=== PATIENT | female | born 1955 | race Caucasian/White ===

== ENCOUNTER 2017-03-05 11:54 | Emergency (ER) | payer MEDICARE, BC ==
[2017-03-05 12:14] VITALS: BP 154/71
--- NOTE | 2017-03-05 13:12 | EDM.PDOC ---
ED HPI Allergic Reaction - General Chief Complaint: Allergic Reaction Stated Complaint: LIGHTHEADED TROUBLE BREATHING Time Seen by Provider: 03/05/17 12:30 Source: Reports: Patient History Limitations: Reports: No limitations - History of Present Illness INITIAL COMMENTS - FREE TEXT/NARRATIVE: Patient presents with dizziness, trouble breathing for the past three days. Lilian states "I started using chlorthalidone three days ago". Lilian also currently takes clonazepam 1m PO three times a day as needed, she reports regular use three times a day with recent attempt to decrease dose per herself. She reports she has tried use of beta blockers and HCTZ in past for blood pressure and they also made her feel dizzy, light headed. Symptom Onset Date: 03/03/17 Timing/Duration: Reports: Day(s): - Related Data Allergies/ADRs: Allergies Allergy/AdvReac Type Severity Reaction Status Date / Time No Known Allergies Allergy Verified 09/26/15 11:48 Home Meds: Home Meds Aspirin/Calcium Carbonate/Mag [Aspirin Buffered 325 mg Tab] 325 mg PO DAILY 02/02 [History] Lisinopril [Lisinopril] 20 mg PO BID 09/23/15 [History] clonazePAM [Clonazepam] 1 mg PO TID PRN 09/23/15 [History] Chlorthalidone 0.5 tab PO DAILY 03/05/17 [History] Simvastatin [Simvastatin] 1 tab PO DAILY 03/05/17 [History] Past Medical History HEENT History: Reports: None Cardiovascular History: Reports: Stents Other Cardiovascular History: Patient reports stent placed to right leg, history of angio to right arm. Respiratory History: Denies: Sleep apnea Other Respiratory History: SOB after taking beta nery and HCTZ Gastrointestinal History: Reports: None Other Gastrointestinal History: Low weight/BMI since 2007 Genitourinary History: Reports: Other (see below) Other Genitourinary History: renal artery obstruction Other Neuro History: Dizziness Psychiatric History: Reports: Anxiety Endocrine/Metabolic History: Reports: None Hematologic History: Reports: None Immunologic History: Reports: None - Past Surgical History Other Cardiovascular Surgeries/Procedures: Angioplasty x 2 Other Musculoskeletal Surgeries/Procedures:: Back surgery x 2, herniated discs - Past Imaging History Past Imaging History: Reports: Angiography Social & Family History - Tobacco Use Smoking Status *Q: Current Every Day Smoker Years of Tobacco use: 50 Packs/Tins Daily: 0.5 Used Tobacco, but Quit: No Second Hand Smoke Exposure: Yes - Recreational Drug Use Recreational Drug Use: No ED ROS ALLERGIC REACTION - Review of Systems Review Of Systems: See Below Constitutional: Reports: weakness. Denies: fever, chills, malaise, night sweats , diaphoresis, weight loss, weight gain HEENT: Reports: Vertigo. Denies: Ear discharge, Ear pain, Hearing loss, Sinus problem, Throat swelling, Vision change Respiratory: Reports: Shortness of Breath. Denies: Wheezing, Cough, Sputum, Hemoptysis Cardiovascular: Reports: Blood pressure problem, Lightheadedness. Denies: Chest pain, Claudication, Dyspnea on exertion, Edema, Orthopnea, Palpitations, PND, Syncope Endocrine: Denies: fatigue, polyuria GI/Abdominal: Reports: Nausea. Denies: Abdominal pain, Constipation, Decreased appetite : Reports: no symptoms Musculoskeletal: Denies: joint swelling, muscle pain Skin: Reports: no symptoms Neurological: Reports: Dizziness, Weakness. Denies: Confusion, Headache, Numbness, Paresthesia, Seizure, Syncope, Trouble Speaking, Difficulty Walking, Change in Speech, Gait Disturbance Psychiatric: Reports: Anxiety. Denies: Hallucinations, Homicidal ideation, Suicidal ideation Hematologic/Lymphatic: Reports: no symptoms Immunologic: Reports: no symptoms ED EXAM GENERAL NO PERIP PULSE - Physical Exam Exam: See Below General Appearance: alert, no apparent distress, anxious Eye Exam: bilateral eye: PERRL Ears: normal external exam, normal canal, hearing grossly normal, normal TMs Nose: normal inspection, normal mucosa Throat/Mouth: Normal inspection, Normal lips, Normal teeth, Normal gums, Normal oropharynx, Normal voice, No airway compromise Head: atraumatic Neck: normal inspection, supple, non-tender, full range of motion Respiratory/Chest: no respiratory distress, lungs clear, normal breath sounds, no accessory muscle use, chest non-tender Cardiovascular: normal peripheral pulses, regular rate, rhythm, no edema, no gallop, no JVD, no murmur, no rub GI/Abdominal: normal bowel sounds, soft, non tender, no organomegaly, no distention, no abnormal bruit, no mass Back Exam: normal inspection, full range of motion Extremities: normal inspection, normal range of motion, non-tender, no pedal edema, normal capillary refill Neurological: alert, oriented, CN II-XII intact, normal cognition, normal gait, normal reflexes, no motor/sensory deficits Psychiatric: anxious Skin Exam: Warm, Dry, Intact, Normal color, No rash Lymphatic: no adenopathy Course - Vital Signs Text/Narrative:: Lilian is a 62 year old female presenting with dizziness, feeling short of breath during dizzy spells and adverse reaction to use of chorthalidone. Patient vital signs stable while in ER, EKG normal sinus. Patient and her instructed to follow up with Dr. Benjamin on Tuesday or this next week due to adverse reaction. She will stop use of chlorthalidone at this time. She can use lorazepam 1mg, 1/2 to whole tablet as directed, making sure she does not take clonazepam within 4 hours of lorazepam use. She was instructed to return to the ER at any time for SOB, chest pain, chest pressure or other concerns. Last Recorded V/S: Last Vital Signs Temp 36.9 C 03/05/17 12:30 Pulse 79 03/05/17 12:30 Resp 12 03/05/17 12:30 BP 154/71 H 03/05/17 12:30 Pulse Ox 98 03/05/17 12:30 - Orders/Labs/Meds Orders: Active Orders 24 hr Category Date Time Status EKG Documentation Completion [RC] ASDIRECTED Care 03/05/17 13:05 Ordered EKG 12 Lead [EK] Routine Ther 03/05/17 13:05 Ordered Departure - Departure Time of Disposition: 13:39 Disposition: Home, Self-Care 01 Condition: good Clinical Impression: Anxiety Forms: ED Department Discharge Additional Instructions: Follow up with Dr. Benjamin next week as directed. Return to the ER for any worsening of status. - My Orders Last 24 Hours: My Active Orders 03/05/17 13:05 EKG Documentation Completion [RC] ASDIRECTED EKG 12 Lead [EK] Routine - Assessment/Plan Last 24 Hours: My Active Orders 03/05/17 13:05 EKG Documentation Completion [RC] ASDIRECTED EKG 12 Lead [EK] Routine
[2017-03-05] MEDS ORDERED: LORazepam 1 MG Tab PO ONE (13:34)
== END 2017-03-05 14:10 | disposition home or self-care (01) ==
LOC: JP.ED 11:54
DX: F41.9 Anxiety disorder, unspecified (principal); F17.210 Nicotine dependence, cigarettes, uncomplicated; Z98.890 Other specified postprocedural states; Z79.82 Long term (current) use of aspirin; Z79.899 Other long term (current) drug therapy
CPT/HCPCS: 93005; 99284; A9270; 93010; 99283

== ENCOUNTER 2020-01-14 15:39 | Emergency (ER) | payer MEDICARE ==
[2020-01-14 16:11] VITALS: BP 175/98
--- NOTE | 2020-01-14 16:11 | EDM.PDOC ---
ED HPI GENERAL MEDICAL PROBLEM - General Chief Complaint: Cardiovascular Problem Stated Complaint: CHEST PAIN Time Seen by Provider: 01/14/20 16:10 Source of Information: Reports: Patient, Old Records History Limitations: Reports: No Limitations - History of Present Illness INITIAL COMMENTS - FREE TEXT/NARRATIVE: 64 yo female is here after a couple of fleeting bouts of chest pain that came on at rest. Sx's not worse with exertion and not associated with diaphoresis, nausea or SOB. Does smoke cigarettes. Has not checked a BP for quite a while. She called the clinic today and described her sx's and was told to come to the ER. Her sx's are completely gone upon arrival today. Is here with her . No radiation of the pain. Today's episode lasted longer than her others at about an hour duration. Onset: Today (and in the recent past), Sudden Onset Date: 01/14/20 Duration: Hour(s): (1), Resolved Prior to Arrival Location: Reports: Chest Quality: Reports: Stabbing Severity: Moderate Improves with: Reports: Other (time) Worsens with: Reports: Other (unknown) Context: Reports: Other (see HPI) Associated Symptoms: Reports: Chest Pain. 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) (none) - Related Data Allergies Allergy/AdvReac Type Severity Reaction Status Date / Time No Known Allergies Allergy Verified 01/14/20 16:13 Home Meds: Home Meds Aspirin/Calcium Carbonate/Mag [Aspirin Buffered 325 mg Tab] 325 mg PO DAILY 02/02 [History] Lisinopril 20 mg PO BID 09/23/15 [History] clonazePAM [Clonazepam] 1 mg PO TID PRN 09/23/15 [History] Rosuvastatin Calcium 1 tab PO BEDTIME 01/14/20 [History] amLODIPine Besylate [Amlodipine Besylate] 1 tab PO BID 01/14/20 [History] Past Medical History HEENT History: Reports: None Cardiovascular History: Reports: Stents Other Cardiovascular History: Patient reports stent placed to right leg, history of angio to right arm. Other Respiratory History: SOB after taking beta nery and HCTZ Gastrointestinal History: Reports: None Other Gastrointestinal History: Low weight/BMI since 2007 Genitourinary History: Reports: Other (See Below) Other Genitourinary History: renal artery obstruction Other Neuro History: Dizziness Psychiatric History: Reports: Anxiety Endocrine/Metabolic History: Reports: None Hematologic History: Reports: None Immunologic History: Reports: None - Past Surgical History Other Cardiovascular Surgeries/Procedures: Angioplasty x 2 Other Musculoskeletal Surgeries/Procedures:: Back surgery x 2, herniated discs - Past Imaging History Past Imaging History: Reports: Angiography ED ROS GENERAL - Review of Systems Review Of Systems: See Below Constitutional: Reports: No Symptoms HEENT: Reports: No Symptoms Respiratory: Reports: No Symptoms Cardiovascular: Reports: Chest Pain GI/Abdominal: Reports: No Symptoms : Reports: No Symptoms Musculoskeletal: Reports: No Symptoms Skin: Reports: No Symptoms Neurological: Reports: No Symptoms Psychiatric: Reports: Anxiety ED EXAM, GENERAL - Physical Exam Exam: See Below Exam Limited By: No Limitations General Appearance: Alert, WD/WN, No Apparent Distress Eye Exam: Bilateral Eye: Normal Inspection Ears: Normal External Exam, Normal Canal, Hearing Grossly Normal Ear Exam: Bilateral Ear: Auricle Normal, Canal Normal Nose: Normal Inspection, No Blood Throat/Mouth: Normal Inspection, Normal Lips, Normal Oropharynx, Normal Voice, No Airway Compromise Head: Atraumatic, Normocephalic Neck: Normal Inspection Respiratory/Chest: No Respiratory Distress, Lungs Clear, Normal Breath Sounds, No Accessory Muscle Use, Chest Non-Tender Cardiovascular: Regular Rate, Rhythm, No Edema Extremities: Normal Inspection, Normal Range of Motion, Non-Tender, No Pedal Edema Neurological: Alert, Oriented, CN II-XII Intact, Normal Cognition, No Motor/ Sensory Deficits Psychiatric: Normal Affect, Normal Mood Skin Exam: Warm, Dry, Intact, Normal Color, No Rash EKG INTERPRETATION EKG Date: 01/14/20 Time: 15:55 Rhythm: NSR Rate (Beats/Min): 104 Marshall: Normal P-Wave: Present QRS: Normal ST-T: Normal QT: Normal Comparison: Change From Previous EKG (Rate had increased significantly since last EKG.) Course - Vital Signs Last Recorded V/S: Last Vital Signs Temp 36.1 C 01/14/20 16:12 Pulse 94 01/14/20 16:12 Resp 20 01/14/20 16:12 BP 175/98 H 01/14/20 16:12 Pulse Ox 98 01/14/20 16:12 - Orders/Labs/Meds Orders: Active Orders 24 hr Category Date Time Status Cardiac Monitoring [RC] .As Directed Care 01/14/20 15:42 Active EKG Documentation Completion [RC] ASDIRECTED Care 01/14/20 15:42 Active Ang Chest [CT] Stat Exams 01/14/20 17:01 Taken Iopamidol [Isovue-370 (76%)] Med 01/14/20 17:15 Active 100 ml IV . DIRECTED Lactated Ringers [Ringers, Lactated] 1,000 ml Med 01/14/20 17:15 Active IV ASDIRECTED Sodium Chloride 0.9% [Normal Saline] 100 ml Med 01/14/20 17:15 Active IV ASDIRECTED Sodium Chloride 0.9% [Saline Flush] Med 01/14/20 17:07 Active 10 ml FLUSH ASDIRECTED PRN EKG 12 Lead [EK] Routine Ther 01/14/20 15:41 Ordered Medication Orders Lactated Ringer's (Ringers, Lactated) 1,000 mls @ 500 mls/hr IV ASDIRECTED [facility] Last Admin: 01/14/20 17:16 Dose: 500 mls/hr Sodium Chloride (Normal Saline) 100 mls @ 3 mls/sec IV ASDIRECTED [facility] Last Admin: 01/14/20 17:54 Dose: 3 mls/sec Iopamidol (Isovue-370 (76%)) 100 ml IV . DIRECTED [facility] Last Admin: 01/14/20 17:54 Dose: 100 ml Sodium Chloride (Saline Flush) 10 ml FLUSH ASDIRECTED PRN PRN Reason: Keep Vein Open Last Admin: 01/14/20 17:53 Dose: 10 ml Admin: 01/14/20 17:17 Dose: 10 ml Labs: Laboratory Tests 01/14/20 01/14/20 01/14/20 Range/Units 16:16 16:16 16:16 WBC 7.2 (4.5-11.0) K/uL RBC 4.33 (3.30-5.50) M/uL Hgb 13.2 (12.0-15.0) g/dL Hct 40.4 (36.0-48.0) % MCV 93 (80-98) fL MCH 31 (27-31) pg MCHC 33 (32-36) % Plt Count 246 (150-400) K/uL D-Dimer, Quantitative 577 H (0.0-400.0) ng/mL Sodium 137 L (140-148) mmol/L Potassium 3.9 (3.6-5.2) mmol/L Chloride 99 L (100-108) mmol/L Carbon Dioxide 25 (21-32) mmol/L Anion Gap 16.9 H (5.0-14.0) mmol/L BUN 7 (7-18) mg/dL Creatinine 0.8 (0.6-1.0) mg/dL Est Cr Clr Drug Dosing 58.77 mL/min Estimated GFR (MDRD) > 60 (>60) Glucose 96 (74-106) mg/dL Calcium 8.7 (8.5-10.1) mg/dL Total Bilirubin 0.2 (0.2-1.0) mg/dL AST 24 (15-37) U/L ALT 26 (12-78) U/L Alkaline Phosphatase 68 (46-116) U/L Troponin I < 0.017 (0.000-0.056) ng/mL Total Protein 7.7 (6.4-8.2) g/dL Albumin 4.1 (3.4-5.0) g/dL Globulin 3.6 H (2.3-3.5) g/dL Albumin/Globulin Ratio 1.1 L (1.2-2.2) Meds: Medications Generic Name Dose Route Start Last Admin Trade Name Freq PRN Reason Stop Dose Admin Lactated Ringer's 1,000 mls @ 500 mls/hr 01/14/20 17:15 01/14/20 17:16 Ringers, Lactated IV 500 mls/hr ASDIRECTED KIT Administration Sodium Chloride 100 mls @ 3 mls/sec 01/14/20 17:15 01/14/20 17:54 Normal Saline IV 3 mls/sec ASDIRECTED KIT Administration Iopamidol 100 ml 01/14/20 17:15 01/14/20 17:54 Isovue-370 (76%) IV 100 ml . DIRECTED KIT Administration Sodium Chloride 10 ml 01/14/20 17:07 01/14/20 17:53 Saline Flush FLUSH 10 ml ASDIRECTED PRN Administration Keep Vein Open - Radiology Interpretation Free Text/Narrative:: CTA chest-neg CT Results Date: 01/14/20 Departure - Departure Time of Disposition: 18:05 Disposition: Home, Self-Care 01 Condition: Fair Clinical Impression: Atypical chest pain Instructions: Nonspecific Chest Pain Referrals: Suzie Irvin PA-C [Primary Care Provider] - Forms: ED Department Discharge Additional Instructions: Continue your current medications. Recheck with your doctor. Return here if worse. Sepsis Event Note - Focused Exam Vital Signs: Vital Signs Temp Pulse Resp BP Pulse Ox 01/14/20 16:12 36.1 C 94 20 175/98 H 98 01/14/20 16:10 36.1 C 100 16 175/98 H 96 Date Exam was Performed: 01/14/20 Time Exam was Performed: 17:59 - My Orders Last 24 Hours: My Active Orders 01/14/20 15:41 EKG 12 Lead [EK] Routine 01/14/20 15:42 Cardiac Monitoring [RC] .As Directed EKG Documentation Completion [RC] ASDIRECTED 01/14/20 17:01 Ang Chest [CT] Stat 01/14/20 17:07 Sodium Chloride 0.9% [Saline Flush] 10 ml FLUSH ASDIRECTED PRN 01/14/20 17:15 Iopamidol [Isovue-370 (76%)] 100 ml IV . DIRECTED Lactated Ringers [Ringers, Lactated] 1,000 ml IV ASDIRECTED Sodium Chloride 0.9% [Normal Saline] 100 ml IV ASDIRECTED - Assessment/Plan Last 24 Hours: My Active Orders 01/14/20 15:41 EKG 12 Lead [EK] Routine 01/14/20 15:42 Cardiac Monitoring [RC] .As Directed EKG Documentation Completion [RC] ASDIRECTED 01/14/20 17:01 Ang Chest [CT] Stat 01/14/20 17:07 Sodium Chloride 0.9% [Saline Flush] 10 ml FLUSH ASDIRECTED PRN 01/14/20 17:15 Iopamidol [Isovue-370 (76%)] 100 ml IV . DIRECTED Lactated Ringers [Ringers, Lactated] 1,000 ml IV ASDIRECTED Sodium Chloride 0.9% [Normal Saline] 100 ml IV ASDIRECTED
[2020-01-14 16:13] VITALS: PULSE 94
[2020-01-14] MEDS ORDERED: Lactated Ringers 1,000 ML IV SCH (17:15)
[2020-01-14] MEDS ORDERED: Sodium Chloride 0.9% 100 ML IV SCH (17:15)
[2020-01-14] MEDS ORDERED: Iopamidol 755 Mg/ML 100 ML Bottle IV SCH (17:15)
[2020-01-14] MEDS: Sodium Chloride 0.9% 10 ML Syringe FLUSH PRN ×2 (17:17→17:53)
--- NOTE | 2020-01-14 18:25 | CRLCT ---
INDICATION: Chest pain, elevated D-dimer TECHNIQUE: CT chest pulmonary PE protocol acquired with 100 cc Isovue 370 IV contrast. COMPARISON: None FINDINGS: Cardiovascular structures: Normal vascular enhancement of the pulmonary arteries, no sign of pulmonary embolism. Heart size is normal. Coronary artery calcifications. No sign of aneurysm in the thoracic aorta. Mediastinum and radha: No mass or adenopathy. Lungs: Clear. Pleura and pericardium: No effusions. Chest wall and axilla: No mass or adenopathy. Upper abdomen: Significant aortic calcifications in the abdominal aorta. Bones: No significant findings. IMPRESSION: No pulmonary embolism, pneumonia, or acute intrathoracic abnormality. Coronary artery disease. Significant abdominal aortic wall calcifications. Consider nonemergent CT abdomen and pelvis for complete evaluation of the abdominal aorta. Please note that all CT scans at this facility use dose modulation, iterative reconstruction, and/or weight-based dosing when appropriate to reduce radiation dose to as low as reasonably achievable. Dictated by Angela Weaver MD @ Jan 14 2020 6:24PM Signed by Dr. Angela Weaver @ Jan 14 2020 6:24PM
== END 2020-01-14 18:14 | disposition home or self-care (01) ==
LOC: JP.ED 15:39
DX: R07.89 Other chest pain (principal); Z79.82 Long term (current) use of aspirin; Z79.899 Other long term (current) drug therapy
CPT/HCPCS: 36415; 71275; 80053; 84484; 85027; 85379; 93005; 96360; 99284; 99285; J7050; J7120; Q9967; 93010

== ENCOUNTER 2020-05-17 11:53 | Emergency (ER) | payer MEDICARE ==
[2020-05-17] MEDS ORDERED: Sodium Chloride 0.9% 10 ML Syringe FLUSH PRN (12:14)
[2020-05-17] MEDS ORDERED: Sodium Chloride 0.9% 1,000 ML IV ONE (12:16)
--- NOTE | 2020-05-17 12:22 | EDM.PDOC ---
ED HPI GENERAL MEDICAL PROBLEM - General Chief Complaint: General Stated Complaint: FEVER,CHEST PAIN Time Seen by Provider: 05/17/20 12:17 Source of Information: Reports: Patient History Limitations: Reports: No Limitations - History of Present Illness INITIAL COMMENTS - FREE TEXT/NARRATIVE: Lilian is a 65 year old female, presents to the ED today a two day hx of various symptoms including a fever per patient, temperature of 99.1 today "I normally run 97". Patient endorses a mild headache on top of her head, relieved with Tylenol, nausea, no vomiting, no diarrhea, no dysuria. "feeling funny" in her head but denies dizziness, described more as a "foggy" feeling. Patient also reports body aches, specifically bilateral leg pain, but states this is not new and her doctor told her it was from her back. Patient endorses sob and chest tightness since last night. She denies any unilateral weakness but does feel generally weak. Patient has occasional non productive cough but is a "very light smoker" and this is also now new per patient. Patient has had a cardiac stent placed but denies being on blood thinners. Patient denies hx of DVT/PE. Patient denies being around anyone with known COVID. Activity seems to make her symptoms worse. Onset: Gradual - Related Data Allergies Allergy/AdvReac Type Severity Reaction Status Date / Time No Known Allergies Allergy Verified 05/17/20 12:12 Home Meds: Home Meds Aspirin/Calcium Carbonate/Mag [Aspirin Buffered 325 mg Tab] 325 mg PO DAILY 09/23/15 [History] Lisinopril 20 mg PO BID 09/23/15 [History] clonazePAM [Clonazepam] 1 mg PO TID PRN 09/23/15 [History] Rosuvastatin Calcium 1 tab PO BEDTIME 01/14/20 [History] amLODIPine Besylate [Amlodipine Besylate] 5 mg PO BID 01/14/20 [History] Diclofenac Sodium 50 mg PO ASDIRECTED 05/17/20 [History] Past Medical History HEENT History: Reports: None Cardiovascular History: Reports: Stents Other Cardiovascular History: Patient reports stent placed to right leg, history of angio to right arm. Other Respiratory History: SOB after taking beta nery and HCTZ Gastrointestinal History: Reports: None Other Gastrointestinal History: Low weight/BMI since 2007 Genitourinary History: Reports: Other (See Below) Other Genitourinary History: renal artery obstruction Musculoskeletal History: Reports: None Other Neuro History: Dizziness Psychiatric History: Reports: Anxiety Endocrine/Metabolic History: Reports: None Hematologic History: Reports: None Immunologic History: Reports: None - Past Surgical History Other Cardiovascular Surgeries/Procedures: Angioplasty x 2 Other Musculoskeletal Surgeries/Procedures:: Back surgery x 2, herniated discs - Past Imaging History Past Imaging History: Reports: Angiography Social & Family History - Family History Family Medical History: Noncontributory - Caffeine Use Caffeine Use: Reports: Coffee ED ROS GENERAL - Review of Systems Review Of Systems: Comprehensive ROS is negative, except as noted in HPI. ED EXAM, GENERAL - Physical Exam Exam: See Below Exam Limited By: No Limitations General Appearance: Alert, Anxious Eye Exam: Left Eye: Nystagmus (left lateral horizontal), Bilateral Eye: EOMI, PERRL Ears: Normal External Exam Nose: Normal Inspection Throat/Mouth: Normal Inspection, Normal Oropharynx Head: Atraumatic, Normocephalic Neck: Normal Inspection, Supple, Non-Tender, Full Range of Motion Respiratory/Chest: No Respiratory Distress, Lungs Clear, Normal Breath Sounds Cardiovascular: Tachycardia, Other (Hypertensive) GI/Abdominal: Normal Bowel Sounds, Soft, Non-Tender Back Exam: Normal Inspection Extremities: Normal Inspection, Normal Range of Motion Neurological: Alert, Oriented, CN II-XII Intact, No Motor/Sensory Deficits Psychiatric: Normal Affect Skin Exam: Warm, Dry Lymphatic: No Adenopathy EKG INTERPRETATION Rhythm: NSR Surprise: Normal ST-T: Other (< 0.5 mm in V3-V6, reviewed with Officer) Course - Vital Signs Last Recorded V/S: Last Vital Signs Temp 35.4 C L 05/17/20 12:05 Pulse 98 05/17/20 13:25 Resp 12 05/17/20 13:25 BP 151/81 H 05/17/20 13:25 Pulse Ox 98 05/17/20 13:25 April is a 65 year old female, presents to the ED today with multiple complaints as noted in HPI. Patient arrives here tachycardic, hypertensive, she appears anxious but denies this. Patient's symptoms could be related to cardiac etiology, viral in nature, with her headache and nystagmus, there could be a neurological component although I feel this is less likely. EKG obtained and shows < 0.[address] elevation in leads V3-V6, this was not noted in prior EKG, I discussed this with Officer here in the ED, pending troponin which returns undetectable and given onset of symptoms I do not feel that we need to repeat this. Repeat EKG unchanged. Patient denies any chest tightness here after IV Ativan. We do not think that the EKG is concerning at this time given reassuring cardiac enzymes and does not meet STEMI criteria given very minimal elevation. Patient does have an elevated D Dimer, CT chest obtained and is negative for PE, does show findings consistent with Emphysema/COPD which I discussed with patient. Head CT is unremarkable. CBC returns with normal white count and stable HGB. Patient has mildly low sodium of 132, renal function stable. Patient feeling better here after IV fluids. UA negative for infection. Patient was swabbed for COVID which is pending. I feel patient is stable to be discharged home. Ongoing supportive care discussed as well as importance of hydration. Smoking cessation encouraged. Patient to stay quarantined until COVID swab returns. Reasons to return to the ED discussed. Patient is agreeable to plan of care and discharged in stable condition. - Orders/Labs/Meds Orders: Active Orders 24 hr Category Date Time Status EKG Documentation Completion [RC] ASDIRECTED Care 05/17/20 12:16 Active EKG Documentation Completion [RC] ASDIRECTED Care 05/17/20 13:08 Active Peripheral IV Care [RC] . DIRECTED Care 05/17/20 12:14 Active CORONAVIRUS COVID-19, KACY Stat Lab 05/17/20 12:16 Ordered CULTURE BLOOD [BC] Urgent Lab 05/17/20 12:20 Received CULTURE BLOOD [BC] Urgent Lab 05/17/20 12:35 Received Sodium Chloride 0.9% [Saline Flush] Med 05/17/20 12:14 Active 10 ml FLUSH ASDIRECTED PRN Blood Culture x2 Reflex Set [OM.PC] Urgent Oth 05/17/20 12:14 Ordered Peripheral IV Insertion Adult [OM.PC] Routine Oth 05/17/20 12:14 Ordered EKG 12 Lead [EK] Stat Ther 05/17/20 12:15 Ordered EKG 12 Lead [EK] Stat Ther 05/17/20 13:08 Ordered Medication Orders Sodium Chloride (Saline Flush) 10 ml FLUSH ASDIRECTED PRN PRN Reason: Keep Vein Open Last Admin: 05/17/20 12:29 Dose: 10 ml Documented by: SULEMAN Labs: Laboratory Tests 05/17/20 05/17/20 05/17/20 Range/Units 12:20 12:20 12:20 WBC 6.5 (4.5-11.0) K/uL RBC 4.25 (3.30-5.50) M/uL Hgb 13.4 (12.0-15.0) g/dL Hct 39.4 (36.0-48.0) % MCV 93 (80-98) fL MCH 32 H (27-31) pg MCHC 34 (32-36) % Plt Count 250 (150-400) K/uL Neut % (Auto) 71 H (36-66) % Lymph % (Auto) 21 L (24-44) % [place] % (Auto) 7 H (2-6) % Eos % (Auto) 1 L (2-4) % Baso % (Auto) 1 (0-1) % D-Dimer, Quantitative (0.0-400.0) ng/mL Sodium 132 L (140-148) mmol/L Potassium 4.1 (3.6-5.2) mmol/L Chloride 95 L (100-108) mmol/L Carbon Dioxide 27 (21-32) mmol/L Anion Gap 14.1 H (5.0-14.0) mmol/L BUN 7 (7-18) mg/dL Creatinine 0.8 (0.6-1.0) mg/dL Est Cr Clr Drug Dosing 57.99 mL/min Estimated GFR (MDRD) > 60 (>60) Glucose 107 H (74-106) mg/dL Lactic Acid 1.0 (0.4-2.0) mmol/L Calcium 8.8 (8.5-10.1) mg/dL Total Bilirubin 0.3 (0.2-1.0) mg/dL AST 26 (15-37) U/L ALT 29 (12-78) U/L Alkaline Phosphatase 64 (46-116) U/L Troponin I (0.000-0.056) ng/mL C-Reactive Protein (0.0-0.3) mg/dL Total Protein 7.8 (6.4-8.2) g/dL Albumin 4.2 (3.4-5.0) g/dL Globulin 3.6 H (2.3-3.5) g/dL Albumin/Globulin Ratio 1.2 (1.2-2.2) Urine Color (YELLOW) Urine Appearance (CLEAR) Urine pH (5.0-8.0) Ur Specific [place] (1.008-1.030) Urine Protein (NEGATIVE) mg/dL Urine Glucose (UA) (NEGATIVE) mg/dL Urine Ketones (NEGATIVE) mg/dL Urine Occult Blood (NEGATIVE) Urine Nitrite (NEGATIVE) Urine Bilirubin (NEGATIVE) Urine Urobilinogen (0.2-1.0) EU/dL Ur Leukocyte Esterase (NEGATIVE) Urine RBC (0-5) Urine WBC (0-5) Ur Epithelial Cells Amorphous Sediment Urine Bacteria Urine Mucus 05/17/20 05/17/20 05/17/20 Range/Units 12:35 12:35 12:39 WBC (4.5-11.0) K/uL RBC (3.30-5.50) M/uL Hgb (12.0-15.0) g/dL Hct (36.0-48.0) % MCV (80-98) fL MCH (27-31) pg MCHC (32-36) % Plt Count (150-400) K/uL Neut % (Auto) (36-66) % Lymph % (Auto) (24-44) % [place] % (Auto) (2-6) % Eos % (Auto) (2-4) % Baso % (Auto) (0-1) % D-Dimer, Quantitative 654 H (0.0-400.0) ng/mL Sodium (140-148) mmol/L Potassium (3.6-5.2) mmol/L Chloride (100-108) mmol/L Carbon Dioxide (21-32) mmol/L Anion Gap (5.0-14.0) mmol/L BUN (7-18) mg/dL Creatinine (0.6-1.0) mg/dL Est Cr Clr Drug Dosing mL/min Estimated GFR (MDRD) (>60) Glucose (74-106) mg/dL Lactic Acid (0.4-2.0) mmol/L Calcium (8.5-10.1) mg/dL Total Bilirubin (0.2-1.0) mg/dL AST (15-37) U/L ALT (12-78) U/L Alkaline Phosphatase (46-116) U/L Troponin I < 0.017 (0.000-0.056) ng/mL C-Reactive Protein 0.15 (0.0-0.3) mg/dL Total Protein (6.4-8.2) g/dL Albumin (3.4-5.0) g/dL Globulin (2.3-3.5) g/dL Albumin/Globulin Ratio (1.2-2.2) Urine Color Yellow (YELLOW) Urine Appearance Clear (CLEAR) Urine pH 7.0 (5.0-8.0) Ur Specific [place] 1.015 (1.008-1.030) Urine Protein Negative (NEGATIVE) mg/dL Urine Glucose (UA) Negative (NEGATIVE) mg/dL Urine Ketones Negative (NEGATIVE) mg/dL Urine Occult Blood Trace-intact H (NEGATIVE) Urine Nitrite Negative (NEGATIVE) Urine Bilirubin Negative (NEGATIVE) Urine Urobilinogen 0.2 (0.2-1.0) EU/dL Ur Leukocyte Esterase Trace H (NEGATIVE) Urine RBC 0-5 (0-5) Urine WBC 0-5 (0-5) Ur Epithelial Cells Not seen Amorphous Sediment Not seen Urine Bacteria Many Urine Mucus Not seen Meds: Medications Generic Name Dose Route Start Last Admin Trade Name Freq PRN Reason Stop Dose Admin Sodium Chloride 10 ml 05/17/20 12:14 05/17/20 12:29 Saline Flush FLUSH 10 ml ASDIRECTED PRN Administration Keep Vein Open Discontinued Medications Generic Name Dose Route Start Last Admin Trade Name Freq PRN Reason Stop Dose Admin Sodium Chloride 1,000 mls @ 999 mls/hr 05/17/20 12:16 05/17/20 12:29 Normal Saline IV 05/17/20 13:16 999 mls/hr .BOLUS ONE Administration Sodium Chloride 100 mls @ 3 mls/sec 05/17/20 13:15 05/17/20 14:08 Normal Saline IV 05/17/20 14:00 3 mls/sec ASDIRECTED KIT Administration Iopamidol 100 ml 05/17/20 13:15 05/17/20 14:08 Isovue-370 (76%) IV 05/17/20 14:00 100 ml . DIRECTED KIT Administration Lorazepam 1 mg 05/17/20 13:29 05/17/20 13:36 Ativan IVPUSH 05/17/20 13:30 1 mg ONETIME ONE Administration Sodium Chloride 10 ml 05/17/20 13:12 05/17/20 14:09 Saline Flush FLUSH 05/17/20 13:13 10 ml ONETIME ONE Administration Departure - Departure Time of Disposition: 15:30 Disposition: Home, Self-Care 01 Condition: Fair Clinical Impression: Viral syndrome, Suspected 2019 novel coronavirus infection - Discharge Information Instructions: Viral Illness, Adult Referrals: Suzie Irvin PA-C [Primary Care Provider] - Forms: ED Department Discharge Additional Instructions: Lilian, Please take care of yourself. Stay well hydrated. Stay quarantined until your COVID test results have returned. Return here with any worsening symptoms or new concerns. Sepsis Event Note (ED) - Evaluation Sepsis Screening Result: No Definite Risk - Focused Exam Vital Signs: Vital Signs Temp Pulse Resp BP Pulse Ox 05/17/20 13:25 98 12 151/81 H 98 05/17/20 12:39 98 20 163/73 H 99 05/17/20 12:05 35.4 C L 124 H 20 192/89 H 96 - My Orders Last 24 Hours: My Active Orders 05/17/20 12:14 Peripheral IV Care [RC] . DIRECTED Sodium Chloride 0.9% [Saline Flush] 10 ml FLUSH ASDIRECTED PRN Blood Culture x2 Reflex Set [OM.PC] Urgent Peripheral IV Insertion Adult [OM.PC] Routine 05/17/20 12:15 EKG 12 Lead [EK] Stat 05/17/20 12:16 EKG Documentation Completion [RC] ASDIRECTED CORONAVIRUS COVID-19, KACY Stat 05/17/20 12:20 CULTURE BLOOD [BC] Urgent 05/17/20 12:35 CULTURE BLOOD [BC] Urgent 05/17/20 13:08 EKG Documentation Completion [RC] ASDIRECTED EKG 12 Lead [EK] Stat - Assessment/Plan Last 24 Hours: My Active Orders 05/17/20 12:14 Peripheral IV Care [RC] . DIRECTED Sodium Chloride 0.9% [Saline Flush] 10 ml FLUSH ASDIRECTED PRN Blood Culture x2 Reflex Set [OM.PC] Urgent Peripheral IV Insertion Adult [OM.PC] Routine 05/17/20 12:15 EKG 12 Lead [EK] Stat 05/17/20 12:16 EKG Documentation Completion [RC] ASDIRECTED CORONAVIRUS COVID-19, KACY Stat 05/17/20 12:20 CULTURE BLOOD [BC] Urgent 05/17/20 12:35 CULTURE BLOOD [BC] Urgent 05/17/20 13:08 EKG Documentation Completion [RC] ASDIRECTED EKG 12 Lead [EK] Stat
[2020-05-17] MEDS ORDERED: Sodium Chloride 0.9% 10 ML Syringe FLUSH ONE (13:12)
[2020-05-17] MEDS ORDERED: Iopamidol 755 Mg/ML 100 ML Bottle IV SCH (13:15)
[2020-05-17] MEDS ORDERED: Sodium Chloride 0.9% 100 ML IV SCH (13:15)
[2020-05-17] MEDS ORDERED: LORazepam 2 MG/ML SDV IVPUSH ONE (13:29)
--- NOTE | 2020-05-17 14:40 | CRLCT ---
INDICATION: Headache. Hypertension. TECHNIQUE: CT head without contrast. COMPARISON: None. FINDINGS: CSF spaces: Prominence of the ventricles and sulci likely due to age-related volume loss. Brain parenchyma: The arora-white differentiation is normal. No sign of mass, hemorrhage, or midline shift. Skull base and calvarium: The visualized paranasal sinuses and mastoid air cells demonstrate no acute or significant findings. The visualized orbits are grossly unremarkable. No skull fractures. IMPRESSION: No acute intracranial abnormality. Please note that all CT scans at this facility use dose modulation, iterative reconstruction, and/or weight-based dosing when appropriate to reduce radiation dose to as low as reasonably achievable. Dictated by Branden Sawyer MD @ May 17 2020 2:35PM Signed by Dr. Branden Sawyer @ May 17 2020 2:38PM
--- NOTE | 2020-05-17 14:42 | CRLCT ---
INDICATION: + DIMER SOB COMPARISON: 01/14/2020 TECHNIQUE: CT volumetric acquisition was performed of the thorax during intravenous infusion of 100 cc Isovue 370 nonionic intravenous contrast. Please note that all CT scans at this facility use dose modulation, iterative reconstruction, and/or weight-based dosing when appropriate to reduce radiation dose to as low as reasonably achievable. FINDINGS: The CT images are of acceptable quality and demonstrate normal uniform vascular enhancement within the pulmonary arteries. There are no suspicious filling defects which would indicate pulmonary thromboemboli. There is no evidence of pleural or pericardial fluid. Extensive vascular calcifications are again noted. No aneurysm. There is no evidence of lymphadenopathy within the central mediastinum or within either axilla. On lung window settings, there is no evidence of pneumothorax. COPD/emphysema. No infiltrate or edema. No suspicious nodule. Upper abdomen normal. Mild pectus deformity. Degenerative changes. No fracture. IMPRESSION: No evidence of pulmonary thromboembolism. COPD/emphysema. Please note that all CT scans at this facility use dose modulation, iterative reconstruction, and/or weight-based dosing when appropriate to reduce radiation dose to as low as reasonably achievable. Dictated by Branden Villagomez MD @ May 17 2020 2:34PM Signed by Dr. Branden Villagomez @ May 17 2020 2:39PM
[2020-05-17 15:06] VITALS: BP 128/79; PULSE 95
== END 2020-05-17 15:30 | disposition home or self-care (01) ==
LOC: JP.ED 11:53
DX: B34.9 Viral infection, unspecified (principal); Z79.82 Long term (current) use of aspirin; Z79.899 Other long term (current) drug therapy; Z20.828 Contact with and (suspected) exposure to other viral communicable diseases
CPT/HCPCS: 36415; 70450; 71275; 80053; 81001; 83605; 84484; 85025; 85379; 86140; 87040; 93005; 93010; 96374; 99283; 99284; J2060; J7030; J7050; Q9967; U0002

== ENCOUNTER 2020-12-30 06:28 | Day surgery (SDC) | payer MEDICARE ==
[2020-12-30] MEDS ORDERED: Sodium Chloride 0.9% 1,000 ML IV SCH (07:30)
[2020-12-30] MEDS ORDERED: Midazolam 1 MG/ML 2 ML SDV ONE (07:38)
[2020-12-30] MEDS ORDERED: fentaNYL 100 MCG/2 ML SDV ONE (07:38)
[2020-12-30] MEDS ORDERED: Propofol 200 MG/20 ML SDV ONE (07:38)
[2020-12-30 09:44] VITALS: PULSE 84
[2020-12-30 10:10] VITALS: BP 120/71
--- NOTE | 2020-12-30 10:48 | PROC ---
DATE OF PROCEDURE: SURGEON: Nhan Freeman MD Lilian is a 65-year-old female who has had a Cologuard that came out positive, comes in for a colonoscopy screening for cancer. The risks and benefits were explained to the patient and was taken to the OR. Anesthesia was given by nurse residential team leader. During the procedure, we used 2 mcg of fentanyl, 2 mg of Versed, and 150 mg of propofol. The Olympus 190L was used. The rectum was examined and revealed no abnormality. The tube was placed into the rectum and passed under direct vision. We did get to the cecum. Upon slow retraction of the tube, noted no known lesions or ulceration. No abnormalities throughout the entire colon. The tube was removed. The patient tolerated the procedure well. PREOPERATIVE DIAGNOSIS: Positive Cologuard. POSTOPERATIVE DIAGNOSIS: Normal colon from cecum to rectum. Routine screening should be done for this lady as there is no evidence of any cancer at the present time. Nhan Freeman MD /[id number]
== END 2020-12-30 10:12 | disposition home or self-care (01) ==
LOC: JP.SDS 06:28
PROVIDERS: ATTEND Internal Medicine
DX: R19.5 Other fecal abnormalities (principal); I10 Essential (primary) hypertension; Z88.0 Allergy status to penicillin
CPT/HCPCS: J2250; J2704; J3010; J7030

== ENCOUNTER 2021-01-28 13:50 | Emergency (ER) | payer MEDICARE ==
[2021-01-28 14:49] VITALS: BP 149/84; PULSE 90
--- NOTE | 2021-01-28 15:06 | EDM.PDOC ---
ED HPI GENERAL MEDICAL PROBLEM - General Chief Complaint: General Stated Complaint: CHEST PAIN, WEAKINESS IN LEGS Time Seen by Provider: 01/28/21 15:02 Source of Information: Reports: Patient, Family History Limitations: Reports: No Limitations - History of Present Illness INITIAL COMMENTS - FREE TEXT/NARRATIVE: PT HAS HAD SOME DISCOMFORT IN HER CHEST FOR THE PAST MONTH. hER FRIEND FEELS LIKE THIS IS QUITE SEVERE AT TIMES. sHE DOES SMOKE BUT HAS CUT BACK TO 2 CIGARETTES PER DAY. sHE DOES NOT GET REAL SOB WHEN SHE HAS THE DISCOMFORT. Onset: Gradual Duration: Day(s): Location: Reports: Chest Associated Symptoms: Reports: Chest Pain, Cough - Related Data Allergies Allergy/AdvReac Type Severity Reaction Status Date / Time Penicillins Allergy Cannot Verified 01/28/21 14:36 Remember Home Meds: Home Meds Aspirin/Calcium Carbonate/Mag [Aspirin Buffered 325 mg Tab] 325 mg PO DAILY 09/23/15 [History] Lisinopril 20 mg PO BID 09/23/15 [History] clonazePAM [Clonazepam] 1 mg PO TID PRN 09/23/15 [History] Rosuvastatin Calcium 5 mg PO BEDTIME 01/14/20 [History] amLODIPine Besylate [Amlodipine Besylate] 5 mg PO BID 12/29/20 [History] Ascorbate Calcium [Vitamin C] 500 mg PO DAILY 12/30/20 [History] Past Medical History HEENT History: Reports: None Cardiovascular History: Reports: Angina, High Cholesterol, Hypertension, [place], Stents Other Cardiovascular History: Patient reports stent placed to right leg, history of angio to right arm. Stent in "ilicac artery" Respiratory History: Reports: COPD Other Respiratory History: SOB after taking beta nery and HCTZ, smoker Gastrointestinal History: Reports: None Other Gastrointestinal History: Low weight/BMI since 2007, positive cologuard Genitourinary History: Reports: Other (See Below) Other Genitourinary History: renal artery obstruction [place] History: Reports: Musculoskeletal History: Reports: Arthritis, Other (See Below) Other Musculoskeletal History: "spinal degeneration" Neurological History: Reports: Seizure Other Neuro History: Dizziness Psychiatric History: Reports: Anxiety Endocrine/Metabolic History: Reports: None Hematologic History: Reports: None Immunologic History: Reports: None - Infectious Disease History Infectious Disease History: Reports: Influenza, Measles - Past Surgical History Head Surgeries/Procedures: Reports: None HEENT Surgical History: Reports: Cataract Surgery Other Cardiovascular Surgeries/Procedures: Angioplasty x 2 Respiratory Surgical History: Reports: None GI Surgical History: Reports: Colonoscopy Female Surgical History: Reports: Tubal Ligation Neurological Surgical History: Reports: Lumbar Spine Other Musculoskeletal Surgeries/Procedures:: Back surgery x 2, herniated discs - Past Imaging History Past Imaging History: Reports: Angiography Social & Family History - Family History Family Medical History: No Pertinent Family History - Tobacco Use Tobacco Use Status *Q: Current Every Day Tobacco User Years of Tobacco use: 40 Packs/Tins Daily: 0.3 - Caffeine Use Caffeine Use: Reports: Coffee - Recreational Drug Use Recreational Drug Use: No ED ROS GENERAL - Review of Systems Review Of Systems: See Below Constitutional: Reports: No Symptoms HEENT: Reports: No Symptoms Respiratory: Reports: Cough Cardiovascular: Reports: Chest Pain Endocrine: Reports: No Symptoms GI/Abdominal: Reports: No Symptoms : Reports: No Symptoms Musculoskeletal: Reports: Other (PAIN IN THE UPPER CHEST. ) ED EXAM, GENERAL - Physical Exam Exam: See Below Free Text/Narrative:: pt arrived with a history of atypical chest pain, some coughing. The chest pain has been going on for several weeks. This does not get worse when she exercises. Exam Limited By: No Limitations General Appearance: Alert, Anxious, Mild Distress Ears: Normal TMs Nose: Normal Inspection Throat/Mouth: Normal Inspection Head: Atraumatic Neck: Normal Inspection Respiratory/Chest: No Respiratory Distress, Other (pt has a known history of copd. She is not struggling to breath at this time. ) Cardiovascular: Regular Rate, Rhythm GI/Abdominal: Soft, Non-Tender (Female) Exam: Deferred Rectal (Female) Exam: Deferred Back Exam: Normal Inspection Extremities: Normal Inspection Neurological: Alert, Oriented, Normal Cognition Psychiatric: Anxious Course - Vital Signs Last Recorded V/S: Last Vital Signs Temp 36.8 C 01/28/21 14:35 Pulse 90 01/28/21 14:48 Resp 16 01/28/21 14:48 BP 149/84 H 01/28/21 14:48 Pulse Ox 96 01/28/21 14:48 - Orders/Labs/Meds Labs: Laboratory Tests 01/28/21 01/28/21 01/28/21 Range/Units 15:00 15:00 15:44 WBC 6.0 (4.5-11.0) K/uL RBC 4.30 (3.30-5.50) M/uL Hgb 13.7 (12.0-15.0) g/dL Hct 39.7 (36.0-48.0) % MCV 92 (80-98) fL MCH 32 H (27-31) pg MCHC 35 (32-36) % Plt Count 192 (150-400) K/uL Neut % (Auto) 66 (36-66) % Lymph % (Auto) 24 (24-44) % [place] % (Auto) 8 H (2-6) % Eos % (Auto) 1 L (2-4) % Baso % (Auto) 1 (0-1) % Sodium 136 L (140-148) mmol/L Potassium 4.0 (3.6-5.2) mmol/L Chloride 98 L (100-108) mmol/L Carbon Dioxide 28 (21-32) mmol/L Anion Gap 14.0 (5.0-14.0) mmol/L BUN 8 (7-18) mg/dL Creatinine 0.7 (0.6-1.0) mg/dL Est Cr Clr Drug Dosing 57.37 mL/min Estimated GFR (MDRD) > 60 (>60) Glucose 104 (74-106) mg/dL Calcium 9.0 (8.5-10.1) mg/dL Total Bilirubin 0.1 L D (0.2-1.0) mg/dL AST 24 (15-37) U/L ALT 26 (12-78) U/L Alkaline Phosphatase 74 (46-116) U/L Troponin I < 0.017 (0.000-0.056) ng/mL Total Protein 7.2 (6.4-8.2) g/dL Albumin 3.9 (3.4-5.0) g/dL Globulin 3.3 (2.3-3.5) g/dL Albumin/Globulin Ratio 1.2 (1.2-2.2) - Re-Assessments/Exams Free Text/Narrative Re-Assessment/Exam: 02/03/21 07:16 ekg and trop was normal. Her chest xray showed copd without infiltrates. Departure - Departure Time of Disposition: 16:14 Disposition: Home, Self-Care 01 Condition: Fair Clinical Impression: COPD (chronic obstructive pulmonary disease), Bronchitis - Discharge Information Instructions: Chronic Obstructive Pulmonary Disease, Acute Bronchitis, Adult Referrals: Angélica Downs DO [Primary Care Provider] - Forms: ED Department Discharge Care Plan Goals: pt states she does not tolerate zithromax. She was switched to doxycyline 100 mg bid for 10 days. , rtc for a lexscan Pt is nervous about the lexiscan and will call back later. Sepsis Event Note (ED) - Evaluation Sepsis Screening Result: No Definite Risk
--- NOTE | 2021-01-28 15:27 | CR ---
CHEST: 2 view CLINICAL HISTORY:Chest pain COMPARISON:CT April 2020 FINDINGS: The lungs are emphysematous. The heart size, pulmonary vascularity and hilar structures are normal. No infiltrate effusion or pneumothorax is seen. IMPRESSION: No acute cardiopulmonary process Diffuse emphysematous changes .
== END 2021-01-28 16:30 | disposition home or self-care (01) ==
LOC: JP.ED 13:50
DX: J44.9 Chronic obstructive pulmonary disease, unspecified (principal); E78.00 Pure hypercholesterolemia, unspecified; I10 Essential (primary) hypertension; I25.2 Old myocardial infarction; M19.90 Unspecified osteoarthritis, unspecified site; F17.210 Nicotine dependence, cigarettes, uncomplicated; Z88.0 Allergy status to penicillin; Z79.82 Long term (current) use of aspirin; Z79.899 Other long term (current) drug therapy
CPT/HCPCS: 36415; 71046; 71046-26; 80053; 84484; 85025; 93005; 99285-25

== ENCOUNTER 2024-01-18 09:44 | Emergency (ER) | payer MEDICARE ==
[2024-01-18] MEDS: Albuterol/Ipratropium 3.0-0.5 MG/3 ML Neb Soln NEB ONE (10:30)
[2024-01-18] MEDS: predniSONE 20 MG Tab PO ONE (10:36)
[2024-01-18 10:51] LABS: CORONAVIRUS COVID-19 NAA NEGATIVE (NEGATIVE); INFLUENZA A NAA NEGATIVE (NEGATIVE); INFLUENZA B NAA NEGATIVE (NEGATIVE); RESPIRATORY SYNCYTIAL VIR NAA NEGATIVE (NEGATIVE)
[2024-01-18 10:53] LABS: BASE EXCESS ARTERIAL 2.8 mm/L; BICARBONATE,ARTERIAL 25.9 mmol/L (22.0-26.0); CARBOXYHEMOGLOBIN 2.9 % (0.0-1.6); METHEMOGLOBIN 0.5 %; O2 SATURATION ARTERIAL 92.7 % (95.0-98.0); OXYHEMOGLOBIN 89.5 %; PCO2 ARTERIAL 35.9 mmHg (35.0-42.0); PO2 ARTERIAL 63.2 mmHg (75.0-100.0); TOTAL HEMOGLOBIN 13.6 g/dL (12.0-16.0)
[2024-01-18 10:57] LABS: BASOPHILS PERCENT AUTO 0.2 % (0.1-1.3); EOSINOPHILS ABSOLUTE AUTO 0.04 K/uL (0.00-0.40); EOSINOPHILS PERCENT AUTO 0.9 % (0.0-5.4); HEMATOCRIT 37.1 % (34.3-46.0); HEMOGLOBIN 13.2 g/dL (11.2-15.5); IMMATURE GRAN PERCENT AUTO 0.2 % (0.0-0.7); LYMPHOCYTES ABSOLUTE AUTO 1.29 K/uL (0.8-3.3); LYMPHOCYTES PERCENT AUTO 30.1 % (11.4-47.7); MEAN CORPUSCULAR HGB CONC 35.6 g/dL (31.6-35.5); MEAN CORPUSCULAR VOLUME 89.8 fL (81.4-99.0); MONOCYTES ABSOLUTE AUTO 0.42 K/uL (0.20-0.90); MONOCYTES PERCENT AUTO 9.8 % (3.3-12.6); NEUTROPHILS ABSOLUTE AUTO 2.51 K/uL (1.0-7.6); NEUTROPHILS PERCENT AUTO 58.8 % (40.0-78.1); PLATELET COUNT,PLT 142 K/uL (130-375); RED BLOOD CELL COUNT 4.13 M/uL (3.77-5.24); WHITE BLOOD CELL COUNT,WBC 4.3 K/uL (3.2-11.0)
[2024-01-18 11:00] LABS: BASOPHILS ABSOLUTE AUTO 0.01 K/uL (0.00-0.10); IMMATURE GRAN ABSOLUTE AUTO 0.01 K/uL (0.00-0.23)
[2024-01-18 11:23] LABS: CALCIUM 8.7 mg/dL (8.5-10.1); CREATININE 0.6 mg/dL (0.6-1.0); EST CRCL DRUG DOSING (CG) 60.92 mL/min; MAGNESIUM 1.8 mg/dL (1.8-2.4); POTASSIUM,K 3.8 mmol/L (3.6-5.2); TROPONIN I HIGH SENSITIVITY 26.8 pg/mL (<=60.3)
[2024-01-18 11:29] LABS: ANION GAP 12.8 mmol/L (5.0-14.0)
[2024-01-18] MEDS ORDERED: Albuterol/Ipratropium 3.0-0.5 MG/3 ML Neb Soln NEB ONE (11:48)
[2024-01-18 12:12] VITALS: BP 148/74; PULSE 90
== END 2024-01-18 12:17 | disposition home or self-care (01) ==
LOC: JP.ED 09:44
DX: J44.1 Chronic obstructive pulmonary disease with (acute) exacerbation (principal); F17.210 Nicotine dependence, cigarettes, uncomplicated; Z79.899 Other long term (current) drug therapy; Z88.0 Allergy status to penicillin; Z88.8 Allergy status to other drugs, medicaments and biological substances
CPT/HCPCS: 0241U; 36415; 36600; 71046; 80048; 82803; 83735; 83880; 84484; 85025; 85379; 93005; 94640; 99285; 93010; J7620